=== PATIENT | female | born 1990 | race Caucasian/White ===

== ENCOUNTER → 2019-06-26 12:38 | Outpatient (CLI) | payer BC, SELFPAY ==
--- NOTE | 2019-06-26 12:39 | US_ITS ---
PROCEDURE: US BREAST RT COMPLETE CLINICAL INDICATION: Tender area at 6 o'clock COMPARISON: No exams were available for comparison FINDINGS: Echodense fibroglandular tissue noted with no obvious cystic or solid lesion of the breast. Small nodes are present in the axilla IMPRESSION: Negative right breast ultrasound. Negative ultrasound does not exclude the possibility of malignancy. Any palpable nodule should be managed on a clinical basis. Dictated by: Nemesio Noriega MD 07/05/2019 17:43 Electronically signed by Nemesio Noriega MD in [place] 07/05/2019 17:43
--- NOTE | 2019-06-26 12:39 | US_ITS ---
PROCEDURE: US TRANSVAGINAL CLINICAL INDICATION: pelvic pain COMPARISON: No exams were available for comparison FINDINGS: Uterus measures 10.0 x 4.8 x 6.4 centimeters. Endometrial stripe is 7.7 millimeters. There is no cul-de-sac fluid. At the cervix there is a small anechoic focus with through enhancement and smooth powers. There is a echogenic focus at the anterior skin and subcutaneous soft tissues likely from a Cesarian scar. Small 1.1 centimeter hypoechoic focus along the anterior myometrium of the body of the uterus. Left ovary is 4.9 x 2.0 x 2.1 centimeters with a small follicle and normal blood flow. Right ovary is 4.6 x 2.7 x 2.9 centimeters with small follicles and normal blood flow. IMPRESSION: Bilateral ovarian follicles. Nabothian cysts. Small uterine fibroid. Dictated by: Deni Cannon 06/26/2019 14:16 Electronically signed by Deni Cannon in [place] 06/26/2019 14:16
== END ==
PROVIDERS: PCP Obstetrics & Gynecology; Visit Provider Obstetrics & Gynecology
DX: N63.10 Unspecified lump in the right breast, unspecified quadrant (principal); R10.2 Pelvic and perineal pain
CPT/HCPCS: 76641; 76830

== ENCOUNTER 2020-10-27 13:27 | Emergency (ER) | payer BC, SELFPAY ==
[2020-10-27 13:44] VITALS: BP 130/78; PULSE 89; RESP 17; TEMP 36.9; O2SAT 99; BMI 35.7
--- NOTE | 2020-10-27 14:00 | HMH.EDUTC ---
[facility] [place] Clinical Impression: Exposure to COVID-19 virus Disposition: Home, Self-Care Condition on Discharge: Good Instructions: DI for COVID-19 (Suspected or Confirmed ), Coronavirus Disease 2019, Preventing the Spread of Coronavirus Discharge Instructions Additional Instructions: *Monitor Temp, Over the counter Motrin or Tylenol as directed/as needed Tylenol every 4 hours and Motrin every 6 hours (as long as your family doctor has told you that you can take it) for fever or pain. and straight to ER if unable to lower temp less than 101.0 after medication given *Warm salt water gargles may help to soothe the throat *Throat Lozenges *Warm fluids like tea with honey may help to soothe the throat *Sleep elevated *Humidifier/Vaporizer Follow up IMMEDIATELY for new or worsening symptoms or no Noticeable improvement over the next 48-72 hours. 911 for difficulty breathing or swallowing You were tested for today for COVID19 your test result should be back in the next 24-48 hours, you may call to the [facility] to see if your test results are back in the next 48 hours [phone] [facility] hours are 9am-9pm You was given a handout with instructions for Self Quarantine and Self isolation for while you wait on test results and what to do if they are positive If you are positive the Health Dept will be contacting you also Prescriptions: guaiFENesin [Mucinex 600mg tablet] 600 mg PO Q12HP PRN #20 tab.er.12h PRN Reason: Cough Transmission Status: Pending to [id number] Referrals: Sophie Olson APRN [Primary Care Provider] - As needed Forms: Work/School Release Time of Disposition: 14:02 Medical Decision Making - Dalton Inquiry Pt receiving controlled substance: No Dalton was queried for this patient: No Vital Signs: 10/27/20 13:44 Temperature 98.4 F Temperature Source Oral Pulse Rate [Right Brachial] 89 Respiratory Rate 17 Blood Pressure [Right Arm] 130/78 Blood Pressure Mean [Right Arm] 95 Blood Pressure Source [Right Arm] Automatic Cuff Blood Pressure Position [Right Arm] Sitting 02 Sat by Pulse Oximetry 99 Oxygen Delivery Method Room Air Orders (Tests/Meds): ORDERS Category Date Time Status Covid-19 Nasal PCR ([facility] [place]) Routine Lab 10/27/20 13:29 Ordered [facility] [place] HPI - General Stated complaint: covid test Time Seen by Provider: 10/27/20 14:00 Mode of Arrival: Ambulatory Source of Information: Patient Limitations: No Limitations Description of Symptoms (Recalled from Triage Doc. by RN): COVID TEST D/T EXPOSURE. C/O LOSS OF TASTE AND SMELL, RUNNY NOSE, AND COUGH X 2 DAYS HEENT Symptoms (Recalled from RN notes): Yes Resp Symptoms (Recalled from RN notes): Yes Skin Symptoms (Recalled from RN notes): No MS Symptoms (Recalled from RN notes): No Functional Status (Recalled from RN notes): WNL - History of Present Illness Provider Complaint: Patient state that her boyfriend was dx yesterday with COVID States that she has been having cough, runny nose and today loss her sense of taste and smell State that she has been around him and wanted to get tested - Related Data Home Medications Medication Instructions Recorded Confirmed Duloxetine HCl [Cymbalta] 30 mg PO DAILY 10/27/20 10/27/20 Previous Rx's Medication Instructions Recorded guaiFENesin [Mucinex 600mg tablet] 600 mg PO Q12HP PRN #20 tab.er.12h 10/27/20 Allergies Allergy/AdvReac Type Severity Reaction Status Date / Time No Known Allergies Allergy Verified 10/27/20 13:48 - Worker's Comp Is this a Worker's Comp case?: No [facility] History - Hepatitis A Screen Drug use history?: No High risk sexual behaviors?: No History of sexually transmitted infection?: No Currently employed?: No Childcare worker?: No Do you have indoor plumbing?: Yes Do you have electricity?: Yes Attestation statement:: This patient has been screened for Hepatitis A risk factors. I have reviewed the patient's past medical history: Yes Medical History:
[2020-10-27 14:02] VITALS: BP 130/78; PULSE 89; RESP 17; TEMP 36.9; O2SAT 99
== END 2020-10-27 14:04 | disposition home or self-care (01) ==
PROVIDERS: Emergency Provider Nurse Practitioner; PCP Nurse Practitioner Family
DX: Z20.822 Contact with and (suspected) exposure to COVID-19 (principal); R43.9 Unspecified disturbances of smell and taste
CPT/HCPCS: 99202; G0463; U0003

== ENCOUNTER 2022-08-10 18:51 | Emergency (ER) | payer SELFPAY ==
[2022-08-10 18:53] VITALS: BP 113/85; PULSE 83; RESP 16; TEMP 36.6; O2SAT 97; BMI 37.1
--- NOTE | 2022-08-10 20:01 | CT_ITS ---
PROCEDURE INFORMATION: Exam: CT Abdomen And Pelvis Without Contrast Exam date and time: 08/10/2022 9:04 PM Age: 32 years old Clinical indication: Abdominal pain; Localized; Right lower quadrant (rlq); Prior surgery; Surgery date: 6+ months; Surgery type: Tubal ligation; Additional info: Rlq pain TECHNIQUE: Imaging protocol: Computed tomography of the abdomen and pelvis without contrast. Radiation optimization: All CT scans at this facility use at least one of these dose optimization techniques: automated exposure control; mA and/or kV adjustment per patient size (includes targeted exams where dose is matched to clinical indication); or iterative reconstruction. COMPARISON: US TRANSVAGINAL 06/26/2019 12:56 PM FINDINGS: Liver: Hepatic steatosis. Gallbladder and bile ducts: Cholecystectomy. Pancreas: Normal. No ductal dilation. Spleen: Normal. No splenomegaly. Adrenal glands: Normal. No mass. Kidneys and ureters: Findings suggestive of postoperative changes lower pole left kidney. Stomach and bowel: Unremarkable. No obstruction. No mucosal thickening. Appendix: Appendix located in the right upper quadrant just inferior to the liver. Intraperitoneal space: Unremarkable. No free air. No significant fluid collection. Vasculature: Unremarkable. No abdominal aortic aneurysm. Lymph nodes: Unremarkable. No enlarged lymph nodes. Urinary bladder: Unremarkable as visualized. Reproductive: Increased density in the region of the right ovary. Findings may correspond to a hemorrhagic cyst. Bones/joints: Unremarkable. No acute fracture. Soft tissues: Unremarkable. IMPRESSION: 1. Increased density in the region of the right ovary. Findings may correspond to a hemorrhagic cyst. 2. Clinically correlate if appropriate follow-up with a pelvic ultrasound.
[2022-08-10 20:23] LABS: Microscopic, Urine URINE MICROSCOPIC (MICROSCOPIC)
[2022-08-10 20:32] LABS: Chloride 100 mmol/L (98-107); Sodium 140 mmol/L (136-145)
[2022-08-10 20:33] LABS: Potassium 3.6 mmoL/L (3.5-5.1)
[2022-08-10 20:35] LABS: Alanine Aminotransferase 28 U/L (12-78); Alkaline Phosphatase 148 U/L (38-126); Amylase 77 U/L (30-110); Anion Gap 14.6 mEq/L (5-15); Aspartate Amino Transferase 29 U/L (14-36); Bilirubin,Total 0.3 mg/dl (0.2-1.3); Blood Urea Nitrogen 10 mg/dl (7-17); Calcium 9.7 mg/dl (8.4-10.2); Carbon Dioxide 29 mmol/L (22.0-30.0); Creatinine Clearance Estimated 194 mL/min (50-200); Estimated Glomerular Filt Rate 98 ml/min (>60); GFR (African American) 119 ML/MIN (>60); Glucose 86 mg/dl (74-100)
[2022-08-10 20:36] LABS: Albumin Level 4.5 g/dl (3.5-5.0); Albumin/Globulin Ratio 1.3 (1.1-1.8); Globulin 3.6 g/dL (1.3-3.2); Lipase 53 U/L (23-300); Total Protein,Serum 8.1 g/dl (6.3-8.2)
[2022-08-10 20:43] LABS: Appearance,Urine CLOUDY (Clear); Bilirubin,Urine Negative (Negative); Blood, Urine 1+ (Negative); Color,Urine STRAW (Yellow); Glucose,Urine (UA) Negative (Negative); Ketones,Urine Negative (Negative); Leukocyte Esterase,Urine 1+ (Negative); Nitrate,Urine POSITIVE (Negative); Protein,Urine TRACE (Negative); Specific Gravity, Urine 1.025 (1.005-1.030); Urobilinogen,Urine 0.2 EU/dl (0.2)
[2022-08-10 20:48] LABS: Basophils # 0.1 K/mm3 (0-0.2); Basophils % 1.1 % (0.1-2.0); Eosinophils # 0.2 K/mm3 (0.0-0.4); Eosinophils % 1.4 % (0.1-12.0); Hematocrit 40.2 % (37.0-47.0); Hemoglobin 13.1 g/dL (12.2-16.2); Lymphocytes # 2.9 K/mm3 (0.7-4.5); Mean Corpuscular HGB Conc 32.7 g/dL (31.8-35.4); Mean Corpuscular Volume 85.7 fl (81-99); Mean Platelet Volume 7.8 fl (7.4-10.4); Monocytes # 0.5 K/mm3 (0.1-1.0); Monocytes % 4.4 % (1.7-9.3); Neutrophils # 7.2 K/mm3 (1.8-7.8); Neutrophils % 66.1 % (37.0-80.0); Platelet Count 371 K/mm3 (142-424); Red Blood Count 4.69 M/mm3 (4.20-5.40); Red Cell Distribution Width 14.3 % (11.5-17.5); White Blood Count 10.9 K/mm3 (4.8-10.8)
[2022-08-10 21:18] LABS: Amorphous Sediment,Urine 1+ /lpf; Bacteria,Urine 3+ /lpf; WBC,Urine 20-50 #/hpf (0-3)
--- NOTE | 2022-08-10 22:20 | HMH.EDABDPAI ---
Discharge Plan Disposition Patient Disposition: Home, Self-Care Chief Complaint: Abdominal Pain Prescriptions Prescriptions: No Action duloxetine 30 MG capsule,delayed release(DR/EC) 30 mg PO DAILY guaifenesin 600 MG tablet extended release 12hr 600 mg PO Q12HP PRN (Reason: Cough) Qty: 20 0RF Referrals Follow up/Referrals: Provider,Referral, MD [Primary Care Provider] - See instructions Clinical Impressions Clinical Impression: UTI (urinary tract infection), Ovarian cyst Instructions Patient Instructions: DI for Urinary Tract Infection (UTI), DI for Ovarian Cyst, DI for Acute Abdominal Pain Discharge ED Provider: Taz Peace Abdominal Pain HPI General Chief Complaint: Abdominal Pain Stated Complaint: R side pain Time Seen by Provider: 08/10/22 22:20 Mode of Arrival: Ambulatory Source of Information: Patient and Medical Record Limitations: No Limitations Description of Symptoms (Recalled from ER Triage Doc. by RN): pt c/o RLQ pain radiating into back that started around 4 today. 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 History of Present Illness HPI narrative: rt sided abd pain which began today - has known uti but not started abx complaint: abdominal pain Onset (ago): hour(s) Consistency: intermittent Location: RLQ Severity: moderate Quality: stabbing Associated symptoms: denies other symptoms Related Data Home Medications Medication Instructions Recorded Confirmed duloxetine 30 mg capsule,delayed 30 mg PO DAILY ANXIETY/DEPRESSION 10/27/20 10/27/20 release Previous Rx's Medication Instructions Recorded guaifenesin 600 mg tablet, 600 mg PO Q12HP PRN Cough ##20 10/27/20 extended release 12 hr Allergies Allergy/AdvReac Type Severity Reaction Status Date / Time No Known Allergies Allergy Verified 10/27/20 13:48 PFSH PFS Social History Smoking Status: Never smoker alcohol intake: never substance use type: denies use current occupational status: other Travel in the last 8 weeks: None ROS Obtained: Yes All systems reviewed & no additional complaints except as documented Physical Exam General General appearance: alert and obese Head Head exam: normocephalic Eye Eye exam: Present PERRL and EOMI; Absent scleral icterus ENT ENT exam: Present mucous membranes moist Neck Neck exam: Present full ROM Respiratory Respiratory exam: Absent respiratory distress Cardiovascular Cardiovascular exam: Present regular rate Abdominal Exam Abdominal exam: Present soft and tenderness Abdominal tenderness: Present RLQ and moderate Extremities Exam Extremities exam: Present full ROM Back Exam Back exam: Absent CVA tenderness (R) Neurological Exam Neurological exam: Present alert, oriented X3 and CN II-XII intact; Absent motor sensory deficit Psychiatric Psychiatric exam: Present normal affect Skin Skin exam: Present intact; Absent rash Medical Decision Making Medical Records Medical records reviewed: Yes I reviewed the patient's medical records. Dalton Inquiry Pt receiving controlled substance: No Vital Signs: 08/10/22 18:53 08/10/22 23:02 08/10/22 23:02 Temperature 97.8 F 98.5 F Temperature Source Oral Pulse Rate 80 Pulse Rate [Right] 83 Respiratory Rate 16 17 Blood Pressure 135/78 Blood Pressure [Right Arm] 113/85 Blood Pressure Mean [Right Arm] 94 02 Sat by Pulse Oximetry 97 Oxygen Delivery Method Room Air Room Air Lab Data Lab results reviewed: Yes I reviewed the patient's lab results. Lab Results 08/10/22 19:55: Urine Color Straw, Urine Appearance Cloudy, Urine pH 6.0, Ur Specific [place] 1.025, Urine Protein Trace, Urine Glucose (UA) Negative, Urine Ketones Negative, Urine Blood 1+, Urine Nitrate Positive, Urine Bilirubin Negative, Urine Urobilinogen 0.2, Ur Leukocyte Esterase 1+ A, Urine RBC 5-10, Urine WBC 20-50, Ur Squamous Epith Cells 5-10, Amorphous Sediment 1+, Urine
[2022-08-10 23:02] VITALS: BP 135/78; PULSE 80; RESP 17; TEMP 36.9; O2SAT 97
== END 2022-08-11 01:39 | disposition home or self-care (01) ==
PROVIDERS: Emergency Provider Emergency Medicine
DX: N39.0 Urinary tract infection, site not specified (principal); R05.9 Cough, unspecified; N83.209 Unspecified ovarian cyst, unspecified side; E66.9 Obesity, unspecified; Z68.37 Body mass index [BMI] 37.0-37.9, adult
CPT/HCPCS: 74176; 80053; 81001; 82150; 83690; 85025; 87086; 87088; 87186; 96361; 96374; 96375; 99285; J0696; J2405

== ENCOUNTER 2023-11-11 11:03 | Emergency (ER) | payer BC, SELFPAY ==
[2023-11-11 11:20] VITALS: BP 117/86; PULSE 91; RESP 19; TEMP 37.3; O2SAT 99; BMI 42.4
[2023-11-11 12:06] LABS: UTC Influenza A Antigen Negative (Negative); UTC Strep Screen (Rapid) Negative (Negative)
[2023-11-11 12:07] LABS: UTC Influenza B Antigen Positive (Negative)
[2023-11-11 12:10] VITALS: BP 117/86; PULSE 91; RESP 19; TEMP 37.3; O2SAT 99
--- NOTE | 2023-11-11 12:30 | EXP.UTC ---
Discharge Plan Disposition Patient Disposition: Home, Self-Care Condition: Good Prescriptions Prescriptions: New erpccsjhkbazmpq-ddzaberau-JS [Bromfed DM] 2-30-10 mg/5 mL syrup 10 ml PO Q4-6H PRN (Reason: cold symptoms) Qty: 200 0RF No Action sertraline 100 mg tablet 100 mg PO DAILY Patient Comments: TAKE 1.5 TABLETS BY MOUTH DAILY Referrals Follow up/Referrals: Provider,Referral, MD [Primary Care Provider] - See instructions Clinical Impressions Clinical Impression: Influenza due to influenza virus, type B Instructions Patient Instructions: DI for Influenza -- Adult Discharge ED Provider: Roxy Soria [facility] [place] HPI General Stated complaint: sore throat, cough, runny nose Mode of Arrival: Ambulatory Source of Information: Patient Limitations: No Limitations Time Seen by Provider: 11/11/23 12:23 Description of Symptoms (Recalled from Triage Doc. by RN): PATIENT C/O SORE THROAT AND COUGH HEENT Symptoms (Recalled from RN notes): Yes Resp Symptoms (Recalled from RN notes): Yes Skin Symptoms (Recalled from RN notes): No MS Symptoms (Recalled from RN notes): No Functional Status (Recalled from RN notes): WNL History of Present Illness Provider Complaint: Pt reports that family has been sick. She states that she has had a sore throat and cough since yesterday. She denies taking anything for her symtpoms. Related Data Home Medications Medication Instructions Recorded Confirmed sertraline 100 mg tablet 100 mg PO DAILY 11/11/23 11/11/23 Previous Rx's Medication Instructions Recorded gqjijqguuhpbjxz-kajlyhteurmmbdz-FB 10 ml PO Q4-6H PRN cold symptoms 11/11/23 2 mg-30 mg-10 mg/5 mL oral syrup #200 mL (Bromfed DM) Allergies Allergy/AdvReac Type Severity Reaction Status Date / Time No Known Allergies Allergy Verified 10/27/20 13:48 Worker's Comp Is this a Worker's Comp case?: No [facility] Disclaimer: The information contained in this section may have been updated after the patient was seen, as this information can be updated by other users. Social History Smoking Status: Never smoker alcohol intake: never substance use type: denies use current occupational status: other Travel in the last 8 weeks: None ROS Obtained: Yes All systems reviewed & no additional complaints except as documented Constitutional Constitutional: Reports system reviewed and no additional complaints, except as documented, Reports fatigue, Reports headache(s) and Reports malaise Eyes Eyes: Reports system reviewed and no additional complaints, except as documented ENT Ears, Nose, Mouth, and Throat: Reports system reviewed and no additional complaints, except as documented, Reports headache(s), Reports nasal discharge, Reports odynophagia and Reports sore throat Cardiovascular Cardiovascular: Reports system reviewed and no additional complaints, except as documented Respiratory Respiratory: Reports system reviewed and no additional complaints, except as documented and Reports non-productive cough Gastrointestinal Gastrointestingal: Reports system reviewed and no additional complaints, except as documented and odynophagia Genitourinary Female Genitourinary: Reports system reviewed and no additional complaints, except as documented Musculoskeletal Musculoskeletal: Reports system reviewed and no additional complaints, except as documented Integumentary/Breasts Skin/Breast: Reports system reviewed and no additional complaints, except as documented Neurologic Neurologic: Reports system reviewed and no additional complaints, except as documented and Reports headache(s) Endocrine Endocrine: Reports system reviewed and no additional complaints, except as documented and Reports fatigue Hematologic/Lymphatic Henatologic/Lymphatic: Reports system reviewed and no additional complaints, except as documented Allergic/Immunologic Allergic/Immunologic: Reports system reviewed and no additional complaints, except as documented Physical Exam General General appearance: alert Comment: ill appearing Head Head exam: atraumatic and normocephalic Eye Eye exam: Present normal appearance ENT ENT exam: Present mucous membranes moist Expanded ENT Exam External ear exam: Present normal external inspection TM/Canal exam: Bilateral TM: effusion Nasal speculum exam: Bilateral: other (clear drainage) Mouth exam: Present normal external inspection Teeth exam: Present normal inspection Throat exam: Present tonsillar erythema Neck Neck exam: Present normal inspection Chest Chest inspection: Present normal inspection and symmetric chest wall rise Respiratory Respiratory exam: Present normal lung sounds bilaterally Cardiovascular Cardiovascular exam: Present regular rate and normal rhythm Abdominal Exam Abdominal exam: Present soft and normal bowel sounds Back Exam Back exam: Present normal inspection Neurological Exam Neurological exam: Present alert and oriented X3 Psychiatric Psychiatric exam: Present normal affect and normal mood Skin Skin exam: Present warm, dry and intact Lymphatic Lymphatic Findings: no adenopathy Medical Decision Making Dalton Inquiry Pt receiving controlled substance: No Dalton was queried for this patient: No Vital Signs: 11/11/23 11:20 11/11/23 12:10 Temperature 99.2 F 99.2 F Temperature Source Oral Pulse Rate 91 H Pulse Rate [Left Brachial] 91 H Respiratory Rate 19 19 Blood Pressure 117/86 Blood Pressure [Left Arm] 117/86 Blood Pressure Mean [Left Arm] 96 Blood Pressure Source [Left Arm] Automatic Cuff Blood Pressure Position [Left Arm] Sitting 02 Sat by Pulse Oximetry 99 Oxygen Delivery Method Room Air Lab Data Lab results reviewed: Yes I reviewed the patient's lab results. Lab Results 11/11/23 11:22: Influenza Type A Ag Negative, Influenza Type B Ag Positive A, Strep Scn Rapid Clinic Negative Orders (Tests/Meds): ORDERS Category Date Time Status Strep Screen Confirmation Stat Micro 11/11/23 11:22 Received
== END 2023-11-11 12:35 | disposition home or self-care (01) ==
PROVIDERS: Emergency Provider Nurse Practitioner Family
DX: J10.1 Influenza due to other identified influenza virus with other respiratory manifestations (principal); R05.9 Cough, unspecified; R07.0 Pain in throat
CPT/HCPCS: 87804; 87880; 99204; 99212; G0463

== ENCOUNTER 2024-12-06 20:29 | Emergency (ER) | payer SELFPAY ==
[2024-12-06 20:37] VITALS: BP 142/78; PULSE 101; RESP 18; TEMP 36.8; O2SAT 99; BMI 38.3
--- NOTE | 2024-12-06 21:11 | XR_ITS ---
PROCEDURE INFORMATION: Exam: XR Right Ankle Exam date and time: 12/06/2024 9:35 PM Age: 34 years old Clinical indication: Injury or trauma; Fall; Blunt trauma; Ankle; Right; Additional info: Fall, lateral pain and swelling TECHNIQUE: Imaging protocol: Radiologic exam of the right ankle. Views: 3 or more views. Total images: 3 COMPARISON: CR XR ANKLE RT MIN 3V 12/06/2024 9:35 PM FINDINGS: Bones/joints: No acute fracture, joint dislocation, or joint effusion. The ankle mortise is maintained. Unremarkable joint spaces. No concerning bone lesions. Soft tissues: Mild lateral soft tissue swelling. IMPRESSION: 1. No acute osseous abnormality or joint effusion 2. Lateral soft tissue swelling.
--- NOTE | 2024-12-06 21:11 | XR_ITS ---
PROCEDURE INFORMATION: Exam: XR Right Foot Exam date and time: 12/06/2024 9:35 PM Age: 34 years old Clinical indication: Injury or trauma; Fall; Blunt trauma; Foot; Right; Additional info: 5th met pain after fall, swelling TECHNIQUE: Imaging protocol: Radiologic exam of the right foot. Views: 3 or more views. Total images: 3 COMPARISON: CR XR FOOT RT MIN 3V 12/06/2024 9:35 PM FINDINGS: Bones/joints: No acute fracture or joint dislocation. No concerning bone lesions or calcifications. Unremarkable joint spaces. Prominent calcaneal enthesophyte at the Achilles tendon insertion. Soft tissues: Unremarkable soft tissues. IMPRESSION: 1. Negative right foot. 2. Large calcaneal enthesophyte at the insertion of the Achilles tendon.
--- NOTE | 2024-12-06 21:11 | XR_ITS ---
PROCEDURE INFORMATION: Exam: XR Right Tibia and Fibula Exam date and time: 12/06/2024 9:35 PM Age: 34 years old Clinical indication: Injury or trauma; Fall; Blunt trauma; Lower leg; Right; Additional info: Prox fibular pain after fall TECHNIQUE: Imaging protocol: Radiologic exam of the right tibia and fibula. Views: 2 views. Total images: 2 COMPARISON: CR XR ANKLE RT MIN 3V 12/06/2024 9:35 PM FINDINGS: Bones/joints: No acute fracture or joint dislocation. No concerning bone lesions or calcifications. Unremarkable joint spaces. Soft tissues: Mild lateral soft tissue swelling at the ankle. IMPRESSION: 1. Negative right tibia and fibula. 2. Mild soft tissue swelling lateral ankle.
[2024-12-06] MEDS: IBUPROFEN 600 MG TABLET PO (21:24)
[2024-12-06] MEDS: ACETAMINOPHEN 500MG TAB 1000 MG PO (21:24)
--- NOTE | 2024-12-06 22:26 | ED_ITS ---
Discharge Plan Disposition Patient Disposition: Home, Self-Care Prescriptions Prescriptions: No Action sertraline 100 mg tablet 100 mg PO DAILY Patient Comments: TAKE 1.5 TABLETS BY MOUTH DAILY Referrals Follow up/Referrals: Davi Barrera DO [Staff Physician] - See instructions Provider,Referral, [Primary Care Provider] - See instructions Activity Restrictions/Add. Instructions Additional Instructions/Restrictions: No bony abnormalities on your imaging of your leg today. Likely sprained badly. Call your family doctor to establish care for this visit to the emergency department and schedule follow-up within 48 hours to ensure improvement. If you have any worsening of your condition or any other concerning signs or symptoms, return to the emergency department or your primary care doctor for further evaluation. Follow-up with Dr. Barrera for further evaluation if pain does not improve. Take Tylenol 1000 mg every 6 hours (4 times daily) and ibuprofen 400 mg every 6 hours (4 times daily) as needed with food and water to prevent GI upset and kidney damage. Clinical Impressions Clinical Impression: Right ankle sprain, Right knee sprain Print Language Print Language: Spanish Discharge ED Provider: Dandre Mcfarland General Adult HPI General Chief complaint: Extremity Injury, Lower Stated complaint: [id number] RT ankle inj Time Seen by Provider: 12/06/24 20:50 Mode of Arrival: Ambulatory Source of Information: Patient Description of Symptoms (Recalled from ER Triage Doc. by RN): Pt states she stepped off her porch and rolled her ankle. Pt states she felt a popping sensation. Right ankle noted to be swollen. Strong pulse, brisk cap refill History of Present Illness HPI narrative: Please note that above description of symptoms, in this electronic medical record under categorization of recalled from ER triage doctor by RN are ref lective of an initial nursing assessment, however, is not reflective of my full history and physical exam that was personally taken and clarified. Consequentially, this preceding description of symptoms, which may include the patient's categorized chief complaint in the EMR, do not reflect my personal clinical impression, and the ultimate description of history of present illness and patient stated complaints should be deferred to this section of the note. Unless stated otherwise or congruent with this section of the note, additional signs, symptoms, or incongruence should be interpreted as inaccurate with my clinical impression. Related Data Home Medications ?Medication ?Instructions ?Recorded ?Confirmed sertraline 100 mg tablet 100 mg PO DAILY 11/11/23 12/06/24 Allergies Allergy/AdvReac Type Severity Reaction Status Date / Time No Known Allergies Allergy Verified 12/06/24 20:41 [facility] Disclaimer: The information contained in this section may have been updated after the patient was seen, as this information can be updated by other users. Social History Smoking Status: Never smoker alcohol intake: never substance use type: denies use current occupational status: other Travel in the last 8 weeks: None Have you lived/traveled outside [place] in past 30 days?: No Contact w/someone who lives/traveled outside [place] past 30 days?: No Exposure to someone with infectious disease in past 14 days?: No Do you have a fever (greater than 100.4 F or 38 C)?: No Have you tested positive for COVID-19: No Exposed to someone with COVID-19 in past 14 days?: No Do you have a sore throat?: No Do you have a cough?: No Do you have any weakness?: No Do you have any diarrhea?: No Are you experiencing any unusual bleeding?: No Do you have any muscle aches/pain?: No Do you have any abdominal pain?: No Are you experiencing loss of taste or smell?: No Other Medical History Have you received the Flu Vaccine for this season: No Have you received the Pneumonia Vaccine: No ROS Obtained: Yes All systems reviewed & no additional complaints except as documented Physical Exam General General appearance: alert Head Head exam: atraumatic and normocephalic Eye Eye exam: Present normal appearance, PERRL and EOMI Neck Neck exam: Present normal inspection, full ROM and trachea midline Respiratory Respiratory exam: Absent respiratory distress, wheezes, stridor, accessory muscle use or prolonged expiratory phase Cardiovascular Cardiovascular exam: Present other (Pulses equal symmetric in upper and lower extremities) Abdominal Exam Abdominal exam: Present soft; Absent distention, tenderness or pulsatile mass Extremities Exam Extremities exam: Present other (Per MDM) Neurological Exam Neurological exam: Present alert, oriented X3 and CN II-XII intact; Absent motor sensory deficit Skin Skin exam: Present warm and dry; Absent diaphoresis or erythema Medical Decision Making Medical Records Medical records reviewed: Yes I reviewed the patient's medical records. Screening: Per USPSTF and CDC recommendations, given the prevalence of disease in our region, it is our hospital?s policy to screen for HIV and viral Hepatitis for all patients aged 18 and over and those with ongoing risk factors. [place] Inquiry Pt receiving controlled substance: No [place] was queried for this patient: No Vital Signs: 12/06/24 20:37 12/06/24 22:56 Temperature 98.3 F 98.0 F Temperature Source Temporal Artery Scan Oral Pulse Rate 92 H Pulse Rate [Right] 101 H Respiratory Rate 18 17 Blood Pressure 131/91 H Blood Pressure [Right Arm] 142/78 H Blood Pressure Mean [Right Arm] 99 Blood Pressure Source Automatic Cuff Blood Pressure Source [Right Arm] Automatic Cuff Blood Pressure Position Sitting Blood Pressure Position [Right Arm] Sitting 02 Sat by Pulse Oximetry 99 Oxygen Delivery Method Room Air Room Air Orders (Tests/Meds): ED MEDICATIONS Discontinued Medications Generic Name Dose Route Start Last Admin Trade Name Freq PRN Reason Stop Dose Admin Acetaminophen 1,000 mg 12/06/24 21:11 12/06/24 21:24 Acetaminophen 500mg Tab PO 12/06/24 21:12 1,000 mg ONCE ONE Administration Ibuprofen 600 mg 12/06/24 21:11 12/06/24 21:24 Ibuprofen 600 Mg Tablet PO 12/06/24 21:12 600 mg ONCE ONE Administration ORDERS Category Date Time Status Ankle XR -Right minimum 3 Views [XR ankle RT min 3V] Exams 12/06/24 21:11 Taken Stat Fibula/tibia XR right 2 views [XR tibia fibula RT 2V] Exams 12/06/24 21:11 Taken Stat XR foot RT min 3V Stat Exams 12/06/24 21:11 Taken Medical Decision Narrative: 34-year-old female presenting with right lower extremity injury. She states that she rolled her ankle just prior to arrival and fell onto the ground. Having pain on the lateral aspect of her ankle. Did not take any meds or do anything for the pain. Unable to bear weight, so came in on crutches. History was obtained via conversation with patient and significant other. On arrival, patient hemodynamically stable, alert, oriented x4, appropriate, GCS 15, moving all extremities spontaneously, pupils equal and reactive to light. Full physical exam performed and significant for lateral swelling, no obvious deformity. Neurovascularly intact. Differential includes sprain, strain, fracture, dislocation, among other. Patient was given Tylenol Motrin for symptomatic management and correction of underlying abnormalities. Workup independently interpreted and significant for normal films of the imaged right lower extremity. See radiology read for full review of final results. Patient has crutches, Liam bandage was placed. Close return precautions discussed. Because patient at baseline without signs or symptoms of clinical decompensation, deemed appropriate for discharge. Results were relayed to patient who voiced understanding and were agreeable to outpatient management and follow up. I discussed my clinical impression with patient and answered all questions. At this time, the evidence for any other entities in the differential is insufficient to warrant any further testing or ED observation. This was explained as well. Advisory was given that persistent or worsening symptoms require further evaluation. I confirmed the understanding of this discussion. [employer] disclaimer Much of this encounter note is an electronic freelance operator spoken language to printed text. Electronic freelance operator of the spoken language may permit errors. Although I have reviewed the note, some errors may still exist. Critical Care Critical Care Time Critical Care Time: No
[2024-12-06 22:56] VITALS: BP 131/91; PULSE 92; RESP 17; TEMP 36.7; O2SAT 98
== END 2024-12-06 22:58 | disposition home or self-care (01) ==
PROVIDERS: Emergency Provider Emergency Medicine
DX: S83.91XA Sprain of unspecified site of right knee, initial encounter (principal); S93.401A Sprain of unspecified ligament of right ankle, initial encounter; M25.571 Pain in right ankle and joints of right foot; X58.XXXA Exposure to other specified factors, initial encounter; Y93.89 Activity, other specified; Y92.89 Other specified places as the place of occurrence of the external cause
CPT/HCPCS: 73590; 73610; 73630; 99283